=== PATIENT | male | born 1970 | race Asian ===

== ENCOUNTER 2024-09-02 20:45 | Outpatient (CLI) | payer OTHER, SELFPAY | END 2024-09-02 20:46 | disposition home or self-care (01) | LOC: AMB 09-08 08:02 | PROVIDERS: Visit Provider Emergency Medicine Emergency Medical Services | DX: S09.90XA Unspecified injury of head, initial encounter (principal); Y00.XXXA Assault by blunt object, initial encounter; Y92.009 Unspecified place in unspecified non-institutional (private) residence as the place of occurrence of the external cause | CPT/HCPCS: A0998 ==